=== PATIENT | male | born 1990 | race Caucasian/White ===

== ENCOUNTER 2024-06-20 14:52 | Inpatient (IN) ==
--- NOTE | 2024-06-20 15:12 | Emergency Department Note ---
Impression & Plan Strep pharyngitis, Peritonsillar abscess ED Provider Note CHIEF COMPLAINT: Throat pain HISTORY OF PRESENT ILLNESS: This 33-year-old male patient presents to the emergency department for throat pain, swelling, and difficulty swallowing. He reports he is unable to swallow water. He reports both of his ears hurt as well. He states he was treated with an oral antibiotic, however his symptoms are not improving. The patient states he has difficulty opening his mouth, and has swelling to the left side of the neck. He reports history of chronic tonsillitis as a child. He is currently afebrile, however, has tachycardia. REVIEW OF SYSTEMS: A review of systems was performed with positives and pertinent negatives listed in the history of present illness. All other systems were reviewed and are negative. ALLERGIES: See below MEDICATIONS: See below PMH: See below PHYSICAL EXAM: VITALS: Vitals are noted on the nurse's note and reviewed by myself. Vital signs stable. GENERAL: 33-year-old male, in no acute distress, nondiaphoretic, well-developed well-nourished. SKIN: The skin was without rashes, erythema, edema, or bruising. HEAD: Normocephalic atraumatic. NOSE: Patent, turbinates without inflammation or discharge. No sinus tenderness. MOUTH: Mucous membranes moist. Tonsils are not visible due to trismus. Pharynx unable to be visualized. Uvula midline. Airway patent. Tongue does not deviate. NECK: Supple without nuchal rigidity. Bilateral cervical lymphadenopathy, left worse than right. No JVD. HEART: tachycardia with regular rhythm without murmurs gallops or rubs. LUNGS: Clear to auscultation bilaterally without wheezes, rales or rhonchi. No retractions or accessory muscle use. ABDOMEN: Positive bowel sounds x 4. Soft, nontender, without masses or organomegaly. Romero sign negative. No guarding or rebound tenderness. MUSCULOSKELETAL: No muscle atrophy, erythema, or edema noted. Normal gait. Strength 5/5 throughout. NEURO: Patient was alert and oriented to person place and time. No focal neurological deficits. MEDICAL DECISION MAKING: The patient is a 33-year-old male who arrives to the emergency department for evaluation of the above-stated complaint. A saline lock was established, CBC, CMP, Monospot, group A strep were obtained. CBC shows leukocytosis, 17.35, with a stable hemoglobin and hematocrit, CMP is unremarkable, Monospot negative, group A strep positive. CT imaging of the soft tissue of the neck was obtained to rule out peritonsillar abscess which shows bilateral tonsillitis with left peritonsillar abscess measuring up to 2.0 cm and bilateral cervical adenopathy. The patient was provided 1 L of IV fluids, dexamethasone, and IV Unasyn. Contact with Dr. Haywood from ENT was made who agreed to see the patient at bedside. The patient is currently managing his own secretions. The patient will be admitted to the hospital for IV abx and likely drainage. Case management facilitiated contact with the [facility] hospitalist group. Dr. Hernandez, agreed to admit the patient under his services. Please refer to his documentation as well as Dr. Haywood's documentation, for further patient workup and care. DIFFERENTIAL DIAGNOSIS: Viral syndrome, tonsillitis, streptococcal pharyngitis, mononucleosis, peritonsillar abscess, retropharyngeal abscess, otitis, pneumonia, influenza, as well as other pathologies. Continuous case monitor: Order was placed for continuous case monitor. Patient was placed on the case monitor. Patient was noted to be in sinus tachycardia at an initial rate of 120 bpm, with reduction in rate after IV fluids. The chart was completed utilizing [employer] Speech voice recognition software. Grammatical errors, random word insertions, pronoun errors, and incomplete sentences are an occasional consequence of this system due to software limitations, ambient noise, and hardware issues. Any formal questions or concerns about the content, text, or information contained within the body of this dictation should be directly addressed to the physician for clarification. Past Med/Surg History Problem List (Updated 06/20/24 @ 20:56 by Pb Hernandez MD) Chest pain Sepsis Peritonsillar abscess (Acute) Strep pharyngitis (Acute) Medical History (Updated 06/20/24 @ 20:56 by Pb Hernandez MD) Traumatic brain injury ADHD Surgical History (Updated 06/20/24 @ 18:41 by Pb Hernandez MD) H/O wisdom tooth extraction Social History Smoking Status: Never smoker Hx Alcohol Use: Yes Alcohol type: beer and hard liquor Hx Substance Use: Yes Last Used Substance Other:: 01/2023 Preferred Language: Surinamese Communication Ability: Effective Assembly Cleaner Required: No Beliefs That Will Affect Care: None Current Living Situation: Other Current Living Situation Comment: Lorri Zee Feels Safe at Home: Yes Assistive Devices: None Allergies Allergies Allergy/AdvReac Type Severity Reaction Status Date / Time No Known Allergies Allergy Unverified 06/20/24 17:13 Home Meds Home Medications Medication Instructions Recorded Confirmed acetaminophen 325 mg tablet 325 mg PO QID PRN Fever Or Pain 06/20/24 06/20/24 (Tylenol) azithromycin 250 mg tablet 0 mg PO .COMPLEX 06/20/24 06/20/24 (Zithromax Z-Jules) Results & Data (ED) Vital Signs Vital Signs - 24 hr 06/20/24 15:02 06/20/24 17:10 06/20/24 17:10 Temperature 36.8 C Temperature Source Temporal Artery Scan Pulse Rate 120 H 97 H Pulse Rate [Right Finger] 104 H Pulse Rhythm Regular Pulse Strength Normal Respiratory Rate 20 18 18 Respiratory Effort / Characteristics Non-Labored Spontaneous Non-Labored Spontaneous Respiratory Depth Normal Respiratory Pattern Regular Blood Pressure 139/97 Blood Pressure [Left Arm] 158/96 H Blood Pressure Mean 111 Blood Pressure Mean [Left Arm] 116 Blood Pressure Position Sitting Blood Pressure Position [Left Arm] Lying Pulse Oximetry 94 95 97 Oxygen Delivery Method Room Air Room Air Room Air Sepsis Recent Fever Within 48 Hours No Sepsis New/Unexplained Change in Mental Status No Sepsis Action Taken by Nursing No Action Required 06/20/24 17:28 Temperature Temperature Source Pulse Rate 102 H Pulse Rate [Right Finger] Pulse Rhythm Pulse Strength Respiratory Rate Respiratory Effort / Characteristics Respiratory Depth Respiratory Pattern Blood Pressure Blood Pressure [Left Arm] Blood Pressure Mean Blood Pressure Mean [Left Arm] Blood Pressure Position Blood Pressure Position [Left Arm] Pulse Oximetry Oxygen Delivery Method Sepsis Recent Fever Within 48 Hours Sepsis New/Unexplained Change in Mental Status Sepsis Action Taken by [facility] Medications Current Medication List: was personally reviewed by me Laboratory Data Attestation: I reviewed the patient's lab results. 06/20/24 15:23 06/20/24 18:36 Lab Results 06/20/24 Range/Units 15:23 WBC 17.35 H (4.8-10.8) K/ul RBC 5.67 (4.70-6.10) M/uL Hgb 17.3 (14.0-18.0) g/dl Hct 49.0 (42.0-52.0) % MCV 86.4 (80.0-100.0) fL MCH 30.5 (25.0-34.0) pg MCHC 35.3 (32.0-36.0) g/dL RDW Std Deviation 37.2 (36.4-46.3) fL RDW Coeff of Mery 11.9 (11.5-14.5) % Plt Count 448 H (130-400) K/uL MPV 9.5 (9.4-12.4) fL Immature Gran % (Auto) 1.0 % Neut % (Auto) 72.7 % Lymph % (Auto) 16.1 % Chambers % (Auto) 8.4 % Eos % (Auto) 1.2 % Baso % (Auto) 0.6 % Neut # (Auto) 12.60 H (1.40-6.50) K/uL Lymph # (Auto) 2.80 (1.20-3.40) K/uL Chambers # (Auto) 1.46 H (0.11-0.59) K/uL Eos # (Auto) 0.20 (0.00-0.50) K/uL Baso # (Auto) 0.11 (0.00-0.20) K/uL Immature Gran # (Auto) 0.18 (0.01-0.20) K/uL Sodium 136 (136-145) mmol/L Potassium TNP Chloride 101 (98-107) mmol/L Carbon Dioxide 25 (21-32) mmol/L Anion Gap 10 (3-11) BUN 18 (6-23) mg/dl Creatinine 1.19 (0.6-1.4) mg/dl Est Cr Clr Drug Dosing 101.8 ml/min eGFR 83.23 BUN/Creatinine Ratio 15.1 (10-20) Glucose 92 (70-99(Fasting)) mg/dl Calcium 10.1 (8.6-10.3) mg/dl Total Bilirubin 0.8 (0.2-1.0) mg/dl AST TNP ALT 27 (7-52) U/L Alkaline Phosphatase 91 (34-104) U/L Total Protein 8.9 H (6.0-8.3) gm/dl Albumin 5.0 (3.4-5.0) gm/dl Globulin 3.9 (2.5-4.0) gm/dl Albumin/Globulin Ratio 1.3 (0.9-2) Monoscreen Negative (Negative) Group A Strep (PCR) DETECTED A (NotDetected) Administered Medications Sodium Chloride (Nss) 1,000 mls @ 125 mls/hr IV .Q8H MARIA TERESA Stop: 06/21/24 12:29 Last Admin: 06/20/24 21:47 Dose: 125 mls/hr Documented By: CF Discontinued Medications Dexamethasone Sodium Phosphate (DexamethasonePf 10 Mg/Ml Vial) 10 mg IV NOW ONE Stop: 06/20/24 15:26 Last Admin: 06/20/24 16:08 Dose: 10 mg Documented By: ADELIA Sodium Chloride (Nss) 1,000 mls @ 999 mls/hr IV .Q1H1M ONE Stop: 06/20/24 16:51 Last Infusion: 06/20/24 18:32 Dose: Infused Documented By: Admin: 06/20/24 16:08 Dose: 999 mls/hr Documented By: ADELIA Ampicillin Sodium/Sulbactam Sodium (Unasyn) 3,000 mg in 100 mls @ 200 mls/hr IV NOW STA Stop: 06/20/24 17:04 Last Infusion: 06/20/24 18:32 Dose: Infused Documented By: Admin: 06/20/24 17:05 Dose: 200 mls/hr Documented By: RASHIDA Ioversol (Optiray 320 100ml) 90 ml IV ONCE ONE Stop: 06/20/24 16:22 Last Admin: 06/20/24 16:22 Dose: 90 ml Documented By: ROSITA Imaging Data Radiologist's Impression: Soft Tissue Neck CT 06/20/24 15:25 EXAMINATION: Soft tissue neck with CLINICAL HISTORY: Feels like throat is swollen, unable to swallow water, bilateral ear pain, treated with antibiotics, not improving. PRIORS: None TECHNIQUE: Contiguous axial images were obtained through the soft tissues of the neck with intravenous contrast. Sagittal and coronal reformations are supplied. FINDINGS: Dental amalgam creates beam hardening artifact diminishing image quality. The tonsils are moderately enlarged and edematous, image 135, series 3. A left peritonsillar abscess is present on this image measuring 1.5 x 0.8 x 2.0 cm. The tonsils touch within the midline at this level with no radiopaque foreign body. The epiglottis is appropriate in position. Moderate adenoid hypertrophy present at the base of the tongue. No retropharyngeal drainable fluid collection. Bilateral anterior and posterior adenopathy, left much greater than right. Mildly enlarged left submandibular lymph nodes noted with no adenopathy. Paired salivary glands enhance symmetrically. Floor of the mouth and base of the tongue have a normal appearance. Visualized vascular structures are unremarkable. Soft tissue planes are preserved. No subcutaneous inflammatory change or gas. In bone windows, no acute osseous abnormality. No evidence of osteomyelitis. IMPRESSION: CT features of bilateral tonsillitis with left peritonsillar abscess measuring up to 2.0 cm and bilateral cervical adenopathy. ENT consultation is suggested. Electronically signed by Eliana Colon 06-20-2024 4:50 PM Chest X-Ray 06/20/24 17:11 Chest radiograph, one view History: Chest pain Comparison: None Findings: Single AP view of the chest performed. No focal consolidation or pleural effusion. No pneumothorax. The cardiomediastinal silhouette is within normal limits. Normal pulmonary vascularity. No evidence for lymphadenopathy. No visualized bony or soft tissue abnormality. Impression: Normal chest radiograph Electronically signed by Mateo Ram 06-20-2024 6:07 PM Discharge Plan Visit Data Chief Complaint: Throat Pain Stated Complaint: THROAT PAIN/EDEMA, HARD TO SWALLOW ED Provider: Munira Patrick ED Midlevel Provider: Beth Ochoa Discharge Problem: Strep pharyngitis, Peritonsillar abscess Patient Disposition: Admitted As Inpatient Discharge Instructions Interventions: ED Discharge Assessment Last Done: 06/20/24 19:54
[2024-06-20 15:41] LABS: Basophils # (auto) 0.11 K/uL (0.00-0.20); Basophils % (auto) 0.6 %; Eosinophils % (auto) 1.2 %; Hemoglobin 17.3 g/dl (14.0-18.0); Immature Granulocytes # (auto) 0.18 K/uL (0.01-0.20); Lymphocytes % (auto) 16.1 %; Mean Corpuscular Hemoglobin 30.5 pg (25.0-34.0); Mean Corpuscular Hgb Conc 35.3 g/dL (32.0-36.0); Mean Corpuscular Volume 86.4 fL (80.0-100.0); Mean Platelet Volume 9.5 fL (9.4-12.4); Monocytes # (auto) 1.46 K/uL (0.11-0.59); Monocytes % (auto) 8.4 %; Neutrophils % (auto) 72.7 %; Platelet Count 448 K/uL (130-400); RDW Coefficient of Variation 11.9 % (11.5-14.5); RDW Standard Deviation 37.2 fL (36.4-46.3); Red Blood Count 5.67 M/uL (4.70-6.10); White Blood Count 17.35 K/ul (4.8-10.8)
[2024-06-20] MEDS: SODIUM CHLORIDE 0.9% 1,000 ML IV ONE (16:08)
[2024-06-20] MEDS: dexAMETHasone**PF** 10 MG/ML VIAL IV ONE (16:08)
[2024-06-20 16:14] LABS: Alanine Aminotransferase 27 U/L (7-52); Albumin Globulin Ratio 1.3 (0.9-2); Alkaline Phosphatase 91 U/L (34-104); Anion Gap 10 (3-11); BUN Creatinine Ratio 15.1 (10-20); Bilirubin,Total 0.8 mg/dl (0.2-1.0); Blood Urea Nitrogen 18 mg/dl (6-23); Calcium 10.1 mg/dl (8.6-10.3); Carbon Dioxide 25 mmol/L (21-32); Chloride 101 mmol/L (98-107); Creatinine Clr Calc Pharmacy 101.8 ml/min; Globulin 3.9 gm/dl (2.5-4.0); Glucose 92 mg/dl (70-99(Fasting)); Sodium 136 mmol/L (136-145); Total Protein 8.9 gm/dl (6.0-8.3)
[2024-06-20] MEDS: OPTIRAY 320 100ml IV ONE (16:22)
--- NOTE | 2024-06-20 16:50 | CT Scan Report ---
EXAMINATION: Soft tissue neck with CLINICAL HISTORY: Feels like throat is swollen, unable to swallow water, bilateral ear pain, treated with antibiotics, not improving. PRIORS: None TECHNIQUE: Contiguous axial images were obtained through the soft tissues of the neck with intravenous contrast. Sagittal and coronal reformations are supplied. FINDINGS: Dental amalgam creates beam hardening artifact diminishing image quality. The tonsils are moderately enlarged and edematous, image 135, series 3. A left peritonsillar abscess is present on this image measuring 1.5 x 0.8 x 2.0 cm. The tonsils touch within the midline at this level with no radiopaque foreign body. The epiglottis is appropriate in position. Moderate adenoid hypertrophy present at the base of the tongue. No retropharyngeal drainable fluid collection. Bilateral anterior and posterior adenopathy, left much greater than right. Mildly enlarged left submandibular lymph nodes noted with no adenopathy. Paired salivary glands enhance symmetrically. Floor of the mouth and base of the tongue have a normal appearance. Visualized vascular structures are unremarkable. Soft tissue planes are preserved. No subcutaneous inflammatory change or gas. In bone windows, no acute osseous abnormality. No evidence of osteomyelitis. IMPRESSION: CT features of bilateral tonsillitis with left peritonsillar abscess measuring up to 2.0 cm and bilateral cervical adenopathy. ENT consultation is suggested. Electronically signed by Eliana Colon 06-20-2024 4:50 PM
[2024-06-20] MEDS: AMPICILLIN/SULBACTAM SOD 3,000 MG/100 ML BAG IV STA (17:05)
--- NOTE | 2024-06-20 17:41 | History & Physical Report ---
Date of Service June 20, 2024 Assessment & Plan (1) Sepsis: Plan: SIRS criteria met with HR and WBC Secondary to strep pharyngitis and peritonsillar abscess - started on Unasyn which we will continue Blood cultures ordered on admission after initial antibiotics given in ER Group A strep positive PCR on throat swab Consult ENT for possible need for incision and drainage (2) Chest pain: Plan: Noted on review of systems. (3) Peritonsillar abscess: (4) Strep pharyngitis: (5) ADHD: Plan: Previously took Vyvanse not prescribed Plan VTE Prophylaxis - low risk Diet - NPO pending surgical decision Disposition - admit to PCU Admission and Anticipated Discharge Date Admission Date: June 20, 2024 History of Present Illness Chief Complaint: Throat pain and neck swelling Primary Care Provider: CHEMO Lorri Gonzalez is a 33 year old male who presents to the ER with sore throat and neck swelling. No fever or chills. His symptom of sore throat started on June 12 (8 days ago). He was started on azithromycin at the intermediate a few days after this with acetaminophen. Despite this it progressively became worse. Today he was having difficulty swallowing water and unable to fully open his mouth therefore sent to the ER for imaging. He reports improvement since steroids and antibiotics given in the ER. He also notes a separate history of sharp left sided chest pain intermittently for the last 2-3 weeks. He notes not currently experiencing this. No change with exertion, inspiration or eating. No radiation. This appears to be improving without interventiona and getting less frequent. He notes no problems with anesthesia previously with his wisdom tooth extraction. Allergies Allergy/AdvReac Type Severity Reaction Status Date / Time No Known Allergies Allergy Unverified 06/20/24 17:13 Home Medications Medication Instructions Recorded Confirmed Type acetaminophen 325 mg tablet 325 mg PO QID PRN Fever Or Pain 06/20/24 06/20/24 History (Tylenol) azithromycin 250 mg tablet 0 mg PO .COMPLEX 06/20/24 06/20/24 History (Zithromax Z-Jules) Past Med/Surg History Problem List (Updated 06/20/24 @ 20:56 by Pb Hernandez MD) Chest pain Sepsis Peritonsillar abscess (Acute) Strep pharyngitis (Acute) Medical History (Updated 06/20/24 @ 20:56 by Pb Hernandez MD) Traumatic brain injury ADHD Surgical History (Updated 06/20/24 @ 18:41 by Pb Hernandez MD) H/O wisdom tooth extraction Social History Preferred Language: Barbadian Feels Safe at Home: Yes Review of Systems Review of Systems: All systems reviewed & are unremarkable except as noted in HPI & below Physical Exam Constitutional: WD/WN, vitals as above Eyes: + anicteric sclerae; normal pupil size ENMT: Throat: + posterior oropharynx abnormality (bilateral tonsillar enlargement with erythema) Respiratory: normal respiratory effort, lungs clear to auscultation Cardiovascular: Rate/Rhythm: regular rhythm and + tachycardic Heart Sounds: no murmur Extremities: normal capillary refill; no calf tenderness and no pe reji edema Gastrointestinal (Abdomen): normal bowel sounds, soft, nontender, no hepatosplenomegaly Musculoskeletal: no cyanosis or clubbing, extremities motor strength 5/5 Skin: no rashes, warm and dry Neurologic: moves all extremities and awake; not confused Results & Data Results & Data Vital Signs (Past 12 Hours) Vital Signs Temp Pulse Pulse Resp BP BP Pulse Ox 06/20/24 17:28 102 H 06/20/24 17:10 97 H 18 97 06/20/24 17:10 104 H 18 158/96 H 95 06/20/24 15:02 36.8 C 120 H 20 139/97 94 O2 Del Method 06/20/24 17:28 06/20/24 17:10 Room Air 06/20/24 17:10 Room Air 06/20/24 15:02 Room Air Laboratory Results Abnormal lab results 06/20/24 Range/Units 15:23 WBC 17.35 H (4.8-10.8) K/ul Plt Count 448 H (130-400) K/uL Neut # (Auto) 12.60 H (1.40-6.50) K/uL [place] # (Auto) 1.46 H (0.11-0.59) K/uL Total Protein 8.9 H (6.0-8.3) gm/dl Group A Strep (PCR) DETECTED A (NotDetected) Diagnostic Findings EXAMINATION: Soft tissue neck with CLINICAL HISTORY: Feels like throat is swollen, unable to swallow water, bilateral ear pain, treated with antibiotics, not improving. PRIORS: None TECHNIQUE: Contiguous axial images were obtained through the soft tissues of the neck with intravenous contrast. Sagittal and coronal reformations are supplied. FINDINGS: Dental amalgam creates beam hardening artifact diminishing image quality. The tonsils are moderately enlarged and edematous, image 135, series 3. A left peritonsillar abscess is present on this image measuring 1.5 x 0.8 x 2.0 cm. The tonsils touch within the midline at this level with no radiopaque foreign body. The epiglottis is appropriate in position. Moderate adenoid hypertrophy present at the base of the tongue. No retropharyngeal drainable fluid collection. Bilateral anterior and posterior adenopathy, left much greater than right. Mildly enlarged left submandibular lymph nodes noted with no adenopathy. Paired salivary glands enhance symmetrically. Floor of the mouth and base of the tongue have a normal appearance. Visualized vascular structures are unremarkable. Soft tissue planes are preserved. No subcutaneous inflammatory change or gas. In bone windows, no acute osseous abnormality. No evidence of osteomyelitis. IMPRESSION: CT features of bilateral tonsillitis with left peritonsillar abscess measuring up to 2.0 cm and bilateral cervical adenopathy. ENT consultation is suggested. Medications Administered ER Medications Given: Dexamethasone 10mg IV Normal saline 1000ml bolus Unasyn 3000mg IV ECG Rate (beats per minute): 98 Rhythm: sinus tachycardia Findings: no acute ischemic change Comparison ECG Date: no prior available Code Status & VTE Plan Code Status Full VTE Prophylaxis Plan VTE Prophylaxis will be ordered: No PG Care Time/CCT Total # of Minutes Spent Total Time Spent with Patient: Total time spent is greater than 50% in coordination of care (as documented) at patient's floor/unit and/or counseling patient: Coding Level of Care Code 28657 INT INP/OBS CARE 2/55MIN Diagnoses Sepsis A41.9 Chest pain R07.9 Peritonsillar abscess J36 Strep pharyngitis J02.0 ADHD F90.9
--- NOTE | 2024-06-20 18:09 | XRay Report ---
Chest radiograph, one view History: Chest pain Comparison: None Findings: Single AP view of the chest performed. No focal consolidation or pleural effusion. No pneumothorax. The cardiomediastinal silhouette is within normal limits. Normal pulmonary vascularity. No evidence for lymphadenopathy. No visualized bony or soft tissue abnormality. Impression: Normal chest radiograph Electronically signed by Mateo Ram 06-20-2024 6:07 PM
[2024-06-20 19:01] LABS: Potassium 4.7 mmol/L (3.5-5.1)
[2024-06-20] MEDS ORDERED: ACETAMINOPHEN 1,000 MG/100 ML VIAL IV PRN (19:54)
[2024-06-20] MEDS ORDERED: KETOROLAC TROMETHAMINE 15 MG/ML VIAL IV PRN (20:50)
[2024-06-20] MEDS: SODIUM CHLORIDE 0.9% 1,000 ML IV SCH (21:47)
[2024-06-21] MEDS: AMPICILLIN/SULBACTAM SOD 3,000 MG/100 ML BAG IV SCH
[2024-06-21 06:26] LABS: Basophils # (auto) 0.03 K/uL (0.00-0.20); Basophils % (auto) 0.2 %; Hematocrit (blood only) 43.7 % (42.0-52.0); Hemoglobin 15.2 g/dl (14.0-18.0); Immature Granulocytes # (auto) 0.19 K/uL (0.01-0.20); Immature Granulocytes % (auto) 1.2 %; Lymphocytes # (auto) 2.07 K/uL (1.20-3.40); Lymphocytes % (auto) 13.4 %; Mean Corpuscular Hemoglobin 30.3 pg (25.0-34.0); Mean Corpuscular Hgb Conc 34.8 g/dL (32.0-36.0); Mean Corpuscular Volume 87.1 fL (80.0-100.0); Mean Platelet Volume 9.5 fL (9.4-12.4); Monocytes # (auto) 0.39 K/uL (0.11-0.59); Monocytes % (auto) 2.5 %; Neutrophils # (auto) 12.72 K/uL (1.40-6.50); Neutrophils % (auto) 82.7 %; Platelet Count 406 K/uL (130-400); RDW Coefficient of Variation 11.8 % (11.5-14.5); RDW Standard Deviation 37.8 fL (36.4-46.3); Red Blood Count 5.02 M/uL (4.70-6.10)
[2024-06-21 06:45] LABS: BUN Creatinine Ratio 21.7 (10-20); Calcium 9.3 mg/dl (8.6-10.3); Creatinine Clr Calc Pharmacy 130.7 ml/min; Potassium 4.5 mmol/L (3.5-5.1)
[2024-06-21 07:27] VITALS: RESP 18
--- NOTE | 2024-06-21 08:01 | Electrocardiogram Report ---
Test Reason : Blood Pressure : */* mmHG Vent. Rate : 98 BPM Atrial Rate : 98 BPM P-R Int : 138 ms QRS Dur : 86 ms QT Int : 342 ms P-R-T Axes : 34 27 16 degrees QTcB Int : 436 ms Normal sinus rhythm Normal ECG No previous ECGs available Confirmed by Royce Cochran ([id number]) on 06/21/2024 8:01:28 AM Referred By: Lorri MCLAIN Confirmed By: Royce Cochran
[2024-06-21] MEDS: LIDOCAINE 2%/EPINEPHRINE 1:100,000 20ML INFIL ONE (11:45)
--- NOTE | 2024-06-21 12:22 | Hospitalist Progress Note ---
Date of Service June 21, 2024 Assessment & Plan (1) Sepsis: Plan: SIRS present on admission. Continue antibiotic therapy. Eventual drainage of peritonsillar abscess (2) Chest pain: Plan: No acute coronary syndrome. (3) Peritonsillar abscess: Plan: Left side seen on CT scan. ENT consultation requested and pending. He probably will need I&D procedure (4) Strep pharyngitis: Plan: Strep tonsillitis diagnosed. He is currently on Unasyn, day 2 (5) ADHD: Plan: Stable. Continue current medical management Plan Eventual return to the [facility] within the next 2 to 3 days. He will be on an oral antibiotic at that time Admission and Anticipated Discharge Date Admission Date: June 20, 2024 Subjective Alert and oriented. No distress. He remains on intravenous Unasyn, day 2. ENT consultation is pending. It appears he will need drainage of the left peritonsillar abscess. IV fluids tapered down somewhat. Review of Systems 2 Review of Systems: Constitutionalno fever or chills ENTno blurred vision, no double vision, no epistaxis, no sore throat Respiratoryno cough, no wheezing, no shortness of breath Cardiacno palpitations, no chest pain, no syncope Jaz nausea, vomiting, diarrhea, melena, hematochezia. Odynophagia due to strep tonsillitis and left peritonsillar abscess GUno urinary retention, no urinary incontinence, no dysuria, no hematuria Musculoskeletalno joint pain, no muscle tenderness Skinno bruising, no rashes, no pruritus Neurono isolated weakness, no paresthesia, no weakness Psychno depression, no anxiety Physical Exam 2 Physical Exam: General-alert and oriented x3, no fever, no chills HEENT-head atraumatic and normocephalic, pupils equal and reactive to light, extraocular muscles intact Neck-left submandibular tenderness to palpation and swelling. No open wound or drainage Chest-clear to auscultation. No rales, wheezing or rhonchi Cardiac-regular rate and rhythm, normal S1 and S2 Abdomen-normal bowel sounds, no hepatosplenomegaly Extremities-no cyanosis, clubbing, or edema Neuro-cranial nerves II through XII intact, motor and sensory function within normal limits, strength symmetrical, no focal deficits Psych-normal affect, normal mood Results & Data Results & Data Vital Signs (Past 12 Hours) Vital Signs Temp Pulse Pulse Resp BP Pulse Ox O2 Del Method 06/21/24 08:02 62 06/21/24 07:26 36.3 C L 63 18 108/64 95 Room Air 06/21/24 03:29 36.3 C L 67 14 116/74 96 Room Air 06/21/24 00:57 82 Laboratory Results 06/21/24 06:02 06/21/24 06:02 PG Care Time/CCT Total # of Minutes Spent Total Time Spent with Patient: Total time spent is greater than 50% in coordination of care (as documented) at patient's floor/unit and/or counseling patient: Coding Level of Care Code 45540 SUB INP/OBS CARE 3/50MIN Diagnoses Sepsis A41.9 Chest pain R07.9 Peritonsillar abscess J36 Strep pharyngitis J02.0 ADHD F90.9
--- NOTE | 2024-06-21 12:26 | ENT Consultation ---
Date of Consultation June 21, 2024 Assessment & Plan (1) Peritonsillar cellulitis: No abscess discovered on I&D. Recommend continuing steroids until Tuesday. Recommend a 10 day course of Clindamycin or Augmentin. Follow up with ENT clinic for continued tonsillar issues. History of Present Illness Reason for Consultation: sore throat. Attending Physician: Abel Johansen MD History of Present Illness 33 year old incarcerated male with a with no previous history of peritonsillar absces presented to the ER last night with severe trismus and inability to tolerate PO. He was admitted overnight for corticosteroids and antibiotics to improve his trismus and allow for possible needle I&D. He reports a history of recurrent tonsillitis as a child but nothing as an adult. His symptoms just began a few days ago and worsened to the above. Allergies Allergy/AdvReac Type Severity Reaction Status Date / Time No Known Allergies Allergy Unverified 06/20/24 17:13 Home Medications Medication Instructions Recorded Confirmed Type acetaminophen 325 mg tablet 325 mg PO QID PRN Fever Or Pain 06/20/24 06/20/24 History (Tylenol) azithromycin 250 mg tablet 0 mg PO .COMPLEX 06/20/24 06/20/24 History (Zithromax Z-Jules) Patient History Medical History (Updated 06/21/24 @ 12:24 by Jose Antonio Haywood MD) Traumatic brain injury ADHD Surgical History (Updated 06/20/24 @ 18:41 by Pb Hernandez MD) H/O wisdom tooth extraction Social History Smoking Status: Never smoker Hx Alcohol Use: Yes Alcohol type: beer and hard liquor Hx Substance Use: Yes Last Used Substance Other:: 01/2023 Preferred Language: Bulgarian Communication Ability: Effective Lung Splitter Required: No Beliefs That Will Affect Care: None Current Living Situation: Other Current Living Situation Comment: [facility] Feels Safe at Home: Yes Assistive Devices: None Review of Systems Review of Systems: No pertinent ROS positives unless otherwise mentioned in the HPI Physical Exam Physical Exam: Ears: Normal pinna Nose: No external deformity Neck: trachea midline Neuro: Alert and oriented, Moves all 4 extremities, Symmetric and normal facial nerve function Derm: No lesions noted on face or neck Cardiovascular: No JVD PROCEDURE NOTE: After verbal consent and time out the patient was injected with 2% lidocaine with 1:100,000 epinephrine into the left anterior tonsillar pillar. Approximately 4 mLs were injected. The patient was observed for 5 minutes to allow the medicine to work. Next a 16 gauge needle with a 10 mL syringe was inserted through the palatoglossus muscle into the brianne-tonsillar space under vacuum. This was performed at three additional locations in a vertical line parallel to the medial tonsillar border into the peritonsillar space. No abscess was located. Results & Data Vital Signs (Past 12 Hours) Vital Signs Temp Pulse Pulse Resp BP Pulse Ox O2 Del Method 06/21/24 08:02 62 06/21/24 07:26 36.3 C L 63 18 108/64 95 Room Air 06/21/24 03:29 36.3 C L 67 14 116/74 96 Room Air 06/21/24 00:57 82 Diagnostic Findings independently interpreted CT soft tissue neck, small possible left LAPEL BASTER vs. PTC. PG Care Time/CCT Total # of Minutes Spent Total Time Spent with Patient: Total time spent is greater than 50% in coordination of care (as documented) at patient's floor/unit and/or counseling patient: Coding Level of Care Code 03442 IN/OBS CONSULT LVL 2,35M Diagnoses Peritonsillar cellulitis J36 CPT Codes Drainage of Tonsil Abscess - 85542 ([id number])
[2024-06-21] MEDS ORDERED: methylPREDNISolone 10 mg/mL (For Ped Dose < 7mg) IV SCH (14:00)
[2024-06-21] MEDS: methylPREDNISolone 40 MG in SYRINGE 0 ML IV SCH (14:41)
[2024-06-22 08:33] LABS: Basophils # (auto) 0.03 K/uL (0.00-0.20); Basophils % (auto) 0.1 %; Hematocrit (blood only) 43.5 % (42.0-52.0); Hemoglobin 15.3 g/dl (14.0-18.0); Immature Granulocytes # (auto) 0.26 K/uL (0.01-0.20); Immature Granulocytes % (auto) 1.1 %; Lymphocytes # (auto) 2.43 K/uL (1.20-3.40); Lymphocytes % (auto) 10.6 %; Mean Corpuscular Hemoglobin 30.5 pg (25.0-34.0); Mean Corpuscular Hgb Conc 35.2 g/dL (32.0-36.0); Mean Corpuscular Volume 86.8 fL (80.0-100.0); Mean Platelet Volume 9.9 fL (9.4-12.4); Monocytes # (auto) 0.53 K/uL (0.11-0.59); Monocytes % (auto) 2.3 %; Neutrophils % (auto) 85.9 %; Platelet Count 438 K/uL (130-400); RDW Coefficient of Variation 11.9 % (11.5-14.5); Red Blood Count 5.01 M/uL (4.70-6.10); White Blood Count 22.85 K/ul (4.8-10.8)
[2024-06-22 08:52] LABS: BUN Creatinine Ratio 23.9 (10-20); Calcium 9.2 mg/dl (8.6-10.3); Creatinine Clr Calc Pharmacy 136.4 ml/min; Potassium 4.6 mmol/L (3.5-5.1)
--- NOTE | 2024-06-22 09:40 | Discharge Summary ---
Discharge Summary Date of Service June 22, 2024 Principal Dx & Hospital Course #1 = Principal Diagnosis (1) Sepsis: SIRS present on admission. Now resolved continue antibiotic therapy. (2) Chest pain: No acute coronary syndrome. (3) Peritonsillar abscess: Left side seen on CT scan. ENT consultation appreciated. Needle aspiration was negative for any abscess. This has been ruled out. (4) Strep pharyngitis: Strep tonsillitis diagnosed. Treated while hospitalized with intravenous Unasyn. He will take Augmentin at discharge twice daily for 10 more days. He will also be on a prednisone tapering dose at discharge (5) ADHD: Stable. Continue current medical management Plan Discharge to [facility] today, June 22 Admission HPI Per Admitting Provider Luc Gonzalez is a 33 year old male who presents to the ER with sore throat and neck swelling. No fever or chills. His symptom of sore throat started on June 12 (8 days ago). He was started on azithromycin at the detention a few days after this with acetaminophen. Despite this it progressively became worse. Today he was having difficulty swallowing water and unable to fully open his mouth therefore sent to the ER for imaging. He reports improvement since steroids and antibiotics given in the ER. He also notes a separate history of sharp left sided chest pain intermittently for the last 2-3 weeks. He notes not currently experiencing this. No change with exertion, inspiration or eating. No radiation. This appears to be improving without interventiona and getting less frequent. He notes no problems with anesthesia previously with his wisdom tooth extraction. Discharge Exam General-alert and oriented x3, no fever, no chills HEENT-head atraumatic and normocephalic, pupils equal and reactive to light, extraocular muscles intact Neck-left submandibular tenderness and swelling are resolving. No open wound or drainage Chest-clear to auscultation. No rales, wheezing or rhonchi Cardiac-regular rate and rhythm, normal S1 and S2 Abdomen-normal bowel sounds, no hepatosplenomegaly Extremities-no cyanosis, clubbing, or edema Neuro-cranial nerves II through XII intact, motor and sensory function within normal limits, strength symmetrical, no focal deficits Psych-normal affect, normal mood Discharge Plan Discharge Items [facility] Reason For Visit: STREP PHARYNGITIS WITH ABSCESS, SEPSIS Discharge Diagnosis: Streptococcal tonsillitis, sepsis Activity: Resume your previous activity Non-emergency contact: Primary Care Provider Call non-emergency contact if: your symptoms worsen Follow-up/Referrals: Lorri MCLAIN [Primary Care Provider] - Diet: Regular Addtl Attending Provider Instructions: Take Augmentin antibiotic for 10 more days. Take prednisone in a tapering dose fashion as directed Pending Studies at Discharge: No Stand-Alone Forms: [facility] Skilled Items Patient informed of condition?: Yes Discharge Level of Care: Other Communicable Disease: No Discharge Prognosis: Stable Lines: None Urinary Catheter: No Medications and DC Order Prescriptions: New amoxicillin-pot clavulanate 875-125 mg tablet 1 tab PO BID Qty: 20 0RF prednisone 10 mg tablet See Rx Instructions .ROUTE .COMPLEX Qty: 12 0RF Rx Instructions: 10 mg orally 3 times a day for 2 days, then 10 mg twice a day for 2 days, then 10 mg once a day for 2 days, then stop Discontinued acetaminophen [Tylenol] 325 mg Tablet 325 mg PO QID PRN (Reason: Fever Or Pain) azithromycin [Zithromax Z-Jules] 250 mg Tablet 0 mg PO .COMPLEX Rx Instructions: For 250 mg dose pack: take 500 mg today (day 1), then 250 mg for 4 days (days 2-5) Discharge Orders: Discharge Order (Routine); Ordered 06/22/24 Ordered By: Abel Johansen Admission Data Admit Date/Time: 06/20/24 17:29 Attending Provider: Abel Johansen Admit Provider: Pb Hernandez Primary Care Provider: Lorri MCLAIN Other Providers: Jose Antonio Haywood Jonathan M. Hospital Stay Data Consultations 06/20/24 17:03 Consult Otolaryngology (Head and Neck) Stat 06/20/24 17:31 ED Decision to Admit Stat Diagnostic Imagining Performed 06/20/24 15:25 CT soft tissue neck w con Stat Pending Results Patient Have Any Pending Studies at Discharge: No Discharge Instructions Given to Patient (Per Discharging Provider) Take Augmentin antibiotic for 10 more days. Take prednisone in a tapering dose fashion as directed Total Time Total Time Spent Total Time Spent (In Minutes): 45-minute Coding Level of Care Code 48093 INP/OBS DISCH >30 MIN Diagnoses Sepsis A41.9 Chest pain R07.9 Peritonsillar abscess J36 Strep pharyngitis J02.0 ADHD F90.9
[2024-06-22 10:31] VITALS: BP 121/76; PULSE 75; TEMP 97.7; O2SAT 91
== END 2024-06-22 13:08 | DRG 872 ==
LOC: ED 14:52 → SUATTDRO 17:29 → EDINP 17:29 → 4W 19:54